=== PATIENT | male | born 1940 | race Caucasian/White ===

== ENCOUNTER 2020-04-27 07:23 | Outpatient (CLI) | payer MEDICARE, OTHER, SELFPAY ==
--- NOTE | 2020-04-27 08:15 | ECG_ITS ---
[facility] Test Date: 2020-04-27 Pat Name: Grey Bose Department: Room: Gender: Male Senior Commissions Analyst: Shari Caceres : 1940 Requested By: Pablo Yi Order Number: [id number] Lewis MD: Barbara Narayan M.D. Interpretive Statements NAME OF STUDY: LEXISCAN SESTAMIBI STRESS TEST INDICATION: Chest Pain, PROCEDURE: At the baseline, the EKG revealed sinus bradycardia rate of 59 bpm. Poor R wave progression. Some nonspecific ST changes in the inferolateral leads.. The baseline blood pressure was 192/84 mm Hg with a heart rate of 59 beats/min. Lexiscan was infused over a period of 20 seconds. A total of 0.4 milligrams of Lexiscan was infused. The stress phase was continued for a total of 5 minutes. Heart rate at the end of the stress phase was 75 with a blood pressure 165/77. The EKG at the peak infusion revealed nonspecific ST-T changes. Sestamibi was injected 20 seconds after the Lexiscan infusion. Blood pressure at the end of the recovery phase was 165/82 with a heart rate of 92 per minute. CONCLUSION: 1. Nonspecific EKG changes with the LexiScan infusion 2. No LexiScan induced chest pain or cardiac arrhythmia 3. Normal blood pressure and heart rate response 4. Sestamibi/sestamibi perfusion scan pending; see separate report. Electronically Signed On 04-27-2020 20:36:03 FIELD ASSEMBLY SUPERVISOR by Barbara Narayan M.D. [id number]
--- NOTE | 2020-04-27 08:15 | NMCV_ITS ---
NM zi perf SPECT r/s* [id number] Grey Bose Age: 79 Gender: M : 1940 Exam Date: 04/27/2020 08:49 Ordering Phys: Pablo Oneill DO Technologist: DORIS Godinez Exam Location: [facility] Indications: CHEST PAIN STRESS TEST Please see separate stress test report in [facility] for full findings IMAGE PROTOCOL Rest/Stress 1 Lexiscan Day Radiopharmaceutical Dose (mCi) Administration Site Administered by Rest: Tc-99m 10.7 IV DORIS Edwards Sestamibi Stress:Tc-99m 32.2 IV DORIS Edwards Sestamibi Rest: 27-Apr-2020 60 Discovery 630 Stress: 27-Apr-2020 30 Discovery 630 0.4mg Lexiscan. Images obtained in supine and prone position. SPECT RESULTS Technical Quality: Excellent Raw Data Analysis: Normal Image Corrections: No attenuation or motion correction applied Summed Stress Score: 0 Summed Rest Score: 0 Summed Difference Score: 0 PERFUSION FINDINGS Fairly uniform myocardial tracer uptake. No significant perfusion abnormalities were noted FUNCTIONAL RESULTS (calculated via Gated SPECT) Stress Image LV EF (%): 59 Stress EDV (mL):98 TID: 1.03 Stress ESV (mL):40 FUNCTIONAL FINDINGS: Segmental wall motion analysis revealing no gross wall motion normalities. IMPRESSIONS 1. Unremarkable myocardial perfusion imaging. 2. Segmental wall motion analysis revealing no gross wall motion normalities 3. LV ejection fraction estimated to be 59%. 4. Normal LV volume. No significant coronary ischemia, based on the above findings. No similar previous studies are available for comparison Dr Barbara Narayan MD [facility] (Electronically Signed) Final Date: 27 April 2020 20:01 S
[2020-04-27 08:16] VITALS: BMI 26.6
[2020-04-27 09:27] VITALS: BP 142/67; PULSE 76
[2020-04-27] MEDS: regadenoson 0.4 Mg/5 ml Syringe IVP (09:27)
== END 2020-04-27 07:24 | disposition home or self-care (01) ==
PROVIDERS: PCP Electrodiagnostic Medicine; Visit Provider Electrodiagnostic Medicine
DX: R07.9 Chest pain, unspecified (principal); I10 Essential (primary) hypertension
CPT/HCPCS: 78452; 93017; A9500; J2785

== ENCOUNTER 2020-07-01 09:46 | Outpatient (CLI) | payer MEDICARE, OTHER, SELFPAY ==
--- NOTE | 2020-07-01 09:54 | USCV_ITS ---
Grey Bose Age: 79 Gender: M : 1940 Exam Date: 07/01/2020 10:08 Ordering Phys: Pablo Oneill DO Technologist: Amanda Blake [place] [facility] [place]ication: SYNCOPE, VISUAL CHANGES Risk Factors: Previous Vascular Surgery: Right Brachial BP: / Left Brachial BP: / Right Left Velocity (cm/s) Spectral Plaque Velocity (cm/s) Spectral Plaque Syst/Diast Broadening Syst/Diast Broadening 80.70/ 80.70 Prox CCA 73.40 / 14.90 54.40/ 10.30 Mid CCA 55.70 / 10.30 41.30/ 15.90 Distal CCA 46.90 / 11.70 30.70/ 9.80 Prox ICA 63.00 / 19.80 55.50/ 9.30 Mid ICA 77.00 / 20.50 36.30/ 11.50 Distal ICA 53.50 / 13.20 74.10 ECA 55.00 1.02 ICA/CCA 1.38 Antegrade Vertebral Antegrade 24.20/ 7.70 cm/s 30.80/ 11.70 cm/s Tri Subclavian Tri 72.50 88.00 CONCLUSIONS Right ICA stenosis <50%. Mild atheromatous plaque right carotid bulb/ICA. Left ICA stenosis <50%. Mild atheromatous plaque left carotid bulb/ICA. Normal antegrade Doppler flow noted in the right vertebral artery. Normal antegrade Doppler flow noted in the left vertebral artery. Gerald Nuno MD (Electronically Signed) Final Date: 01 July 2020 16:58 S
== END 2020-07-01 09:47 | disposition home or self-care (01) ==
LOC: US 09:46
PROVIDERS: PCP Electrodiagnostic Medicine; Visit Provider Electrodiagnostic Medicine
DX: R55 Syncope and collapse (principal); H53.10 Unspecified subjective visual disturbances; E78.5 Hyperlipidemia, unspecified; M19.90 Unspecified osteoarthritis, unspecified site; I10 Essential (primary) hypertension; I65.23 Occlusion and stenosis of bilateral carotid arteries
CPT/HCPCS: 93880